=== PATIENT | female | born 1965 | race Caucasian/White ===

== ENCOUNTER 2018-03-09 17:25 | Emergency (ER) | payer OTHER ==
[~2018-03-09] VITALS: Ht 157.5 cm; Wt 66.2 kg
[~2018-03-09 17:25] MED LIST: AMBIEN 5 MG TABL5 M1 PO; DYAZIDE 37.5-21 EACH PO; FLAGYL500 M1 PO; FLAGYL500 MG PO; FOLIC ACID1 MG PO; HYDROCODONE-AP1 EAC6 PO; IBUPROFEN 200200 M1 PO; LEVAQUIN 500 M500 M2 PO; LEVOTHYROXINE 0.1 MG PO; LISINOPRIL10 MG PO; NEURONTIN 300300 M1 PO; NEURONTIN300 MG PO; PROAIR RESPICL90 MCG IH; TRINATE TABLET1 TAB PO; VITAMIN B-1100 M1 PO; ZPAK PO
[2018-03-09] MEDS ORDERED: PROTONIX40 M1 PO (17:40)
[2018-03-09] MEDS ORDERED: TRAMADOL 50 MG50 MG PO (18:20)
[2018-03-09 18:54] VITALS: BP 164/90
== END 2018-03-09 18:54 | disposition home or self-care (01) ==
LOC: M.ERS 17:25
DX: M25.572 Pain in left ankle and joints of left foot (principal); I10 Essential (primary) hypertension; K21.9 Gastro-esophageal reflux disease without esophagitis; G89.29 Other chronic pain

== ENCOUNTER 2018-04-09 05:02 | Emergency (ER) | payer OTHER ==
[~2018-04-09] VITALS: Ht 157.5 cm; Wt 66.2 kg
[~2018-04-09 05:02] MED LIST changes: +PROTONIX40 M1 PO; +TRAMADOL 50 MG50 MG PO
[2018-04-09 05:53] LABS: CREATININE 0.7 mg/dL (0.6-1.3); POTASSIUM 3.8 mmol/L (3.5-5.1)
[2018-04-09 05:57] LABS: URIC ACID* 7.9 mg/dL (2.6-7.2)
[2018-04-09] MEDS ORDERED: HYDROCODONE-AP1 EAC6 PO (06:48)
[2018-04-09] MEDS ORDERED: INDOMETHACIN 2525 MG PO (06:48)
[2018-04-09 07:19] VITALS: BP 155/96
== END 2018-04-09 07:20 | disposition home or self-care (01) ==
LOC: M.ERS 05:02
PROVIDERS: Emergency Medicine
DX: M25.474 Effusion, right foot (principal); I10 Essential (primary) hypertension; G89.29 Other chronic pain; K21.9 Gastro-esophageal reflux disease without esophagitis

== ENCOUNTER 2018-04-27 18:32 | Emergency (ER) | payer OTHER ==
[~2018-04-27] VITALS: Ht 157.5 cm; Wt 68.0 kg
[~2018-04-27 18:32] MED LIST changes: +INDOMETHACIN 2525 MG PO
[2018-04-27 19:30] LABS: ABSOLUTE BASOPHILS 0.1 thou/uL (0.0-0.2); ABSOLUTE EOSINOPHILS 0.5 thou/uL (0.0-0.7); ABSOLUTE LYMPHOCYTES 2.1 thou/uL (0.8-5.3); ABSOLUTE MONOCYTES 0.9 thou/uL (0.0-1.2); ABSOLUTE NEUTROPHILS 4.7 thou/uL (1.6-8.1); BASOPHILS 0.9 %; EOSINOPHILS 6.5 %; HEMATOCRIT 37.1 % (37.0-47.0); LYMPHOCYTES 24.9 %; MCH 33.7 pg (26.0-34.0); MCHC 32.4 g/dL (28.0-37.0); MCV 104.1 fL (80.0-100.0); MONOCYTES 10.5 %; MPV 7.8 fl. (7.2-11.1); NUCLEATED RBCS 0 /100WBC; PLATELET COUNT* 339 thou/uL (150-400); POLYS 57.2 %; RBC 3.56 mil/uL (4.20-5.00); RDW-CV 14.3 % (10.5-14.5); WBC 8.3 thou/uL (4.0-11.0)
[2018-04-27 19:38] LABS: CALCIUM 8.4 mg/dL (8.5-10.1); CREATININE 0.9 mg/dL (0.6-1.3); POTASSIUM 3.8 mmol/L (3.5-5.1)
[2018-04-27 19:42] LABS: ALBUMIN 3.2 g/dL (3.4-5.0); TOTAL BILIRUBIN 0.3 mg/dL (<0.1-1.0); TOTAL PROTEIN 6.7 g/dL (6.4-8.2); URIC ACID* 7.3 mg/dL (2.6-7.2)
[2018-04-27] MEDS ORDERED: ALLOPURINOL 10100 M1 PO (20:02)
[2018-04-27 20:36] VITALS: BP 140/79
== END 2018-04-27 20:45 | disposition home or self-care (01) ==
LOC: M.ERS 18:32
PROVIDERS: Physician Assistant
DX: M10.071 Idiopathic gout, right ankle and foot (principal); I10 Essential (primary) hypertension; G89.29 Other chronic pain; K21.9 Gastro-esophageal reflux disease without esophagitis; Z98.890 Other specified postprocedural states

== ENCOUNTER 2018-05-14 01:30 | Emergency (ER) | payer OTHER ==
[~2018-05-14] VITALS: Ht 157.5 cm; Wt 65.8 kg
[~2018-05-14 01:30] MED LIST changes: +ALLOPURINOL 10100 M1 PO
[2018-05-14 02:07] LABS: ABSOLUTE BASOPHILS 0.1 thou/uL (0.0-0.2); ABSOLUTE EOSINOPHILS 0.5 thou/uL (0.0-0.7); ABSOLUTE LYMPHOCYTES 2.3 thou/uL (0.8-5.3); ABSOLUTE MONOCYTES 0.7 thou/uL (0.0-1.2); ABSOLUTE NEUTROPHILS 4.2 thou/uL (1.6-8.1); BASOPHILS 0.7 %; EOSINOPHILS 6.6 %; HEMATOCRIT 37.9 % (37.0-47.0); HEMOGLOBIN 12.5 gm/dL (12.0-15.0); LYMPHOCYTES 29.9 %; MCH 33.2 pg (26.0-34.0); MCHC 32.9 g/dL (28.0-37.0); MCV 101.1 fL (80.0-100.0); MONOCYTES 8.6 %; MPV 8.1 fl. (7.2-11.1); NUCLEATED RBCS 0 /100WBC; PLATELET COUNT* 380 thou/uL (150-400); POLYS 54.2 %; RBC 3.75 mil/uL (4.20-5.00); RDW-CV 13.6 % (10.5-14.5); WBC 7.8 thou/uL (4.0-11.0)
[2018-05-14 02:12] LABS: URINE BILIRUBIN NEGATIVE (Negative); URINE BLOOD NEGATIVE (Negative); URINE CLARITY CLEAR; URINE COLOR YELLOW; URINE GLUCOSE-RANDOM NEGATIVE (Negative); URINE KETONES NEGATIVE (Negative); URINE LEUKOCYTES-REFLEX TRACE (Negative); URINE PROTEIN NEGATIVE (Negative); URINE UROBILINOGEN 0.2 E.U./dl (0.2-1.0)
[2018-05-14 02:13] LABS: URINE NITRITE-REFLEX POSITIVE (Negative)
[2018-05-14 02:23] LABS: CALCIUM 9.3 mg/dL (8.5-10.1); CREATININE 0.8 mg/dL (0.6-1.3); POTASSIUM 3.5 mmol/L (3.5-5.1)
[2018-05-14 02:27] LABS: ALBUMIN 3.9 g/dL (3.4-5.0); TOTAL BILIRUBIN 0.4 mg/dL (<0.1-1.0); TOTAL PROTEIN 7.4 g/dL (6.4-8.2)
[2018-05-14 03:23] LABS: CASTS None Seen /LPF (None Seen); SQUAMOUS >10 Many /LPF (0-3); URINE WBC-REFLEX 6-15 Few /HPF (0-5)
[2018-05-14 03:24] LABS: BACTERIA-REFLEX >30 Many /HPF (None Seen); CRYSTALS None Seen /LPF (None Seen); URINE RBC 0-2 Rare /HPF (0-2)
[2018-05-14] MEDS ORDERED: HYDROCODON-ACE1 EAC7 PO (04:24)
[2018-05-14] MEDS ORDERED: BACTRIM DS TAB1 EACH PO (04:24)
[2018-05-14 04:40] VITALS: BP 152/101
== END 2018-05-14 04:41 | disposition home or self-care (01) ==
LOC: M.ERS 01:30
PROVIDERS: Emergency Medicine
DX: S32.592A Other specified fracture of left pubis, initial encounter for closed fracture (principal); N39.0 Urinary tract infection, site not specified; I10 Essential (primary) hypertension; G89.29 Other chronic pain; K21.9 Gastro-esophageal reflux disease without esophagitis; X58.XXXA Exposure to other specified factors, initial encounter; Y93.89 Activity, other specified; Y92.89 Other specified places as the place of occurrence of the external cause; Y99.8 Other external cause status

== ENCOUNTER 2018-07-13 15:13 | Emergency (ER) | payer OTHER ==
[~2018-07-13] VITALS: Ht 157.5 cm; Wt 74.1 kg
[~2018-07-13 15:13] MED LIST changes: +BACTRIM DS TAB1 EACH PO; +HYDROCODON-ACE1 EAC7 PO
[2018-07-13 15:34] VITALS: BP 145/64
== END 2018-07-13 17:45 | disposition home or self-care (01) ==
LOC: M.ERS 15:13
DX: F10.129 Alcohol abuse with intoxication, unspecified (principal); Y90.9 Presence of alcohol in blood, level not specified; R11.2 Nausea with vomiting, unspecified; I10 Essential (primary) hypertension; G89.29 Other chronic pain; K21.9 Gastro-esophageal reflux disease without esophagitis

== ENCOUNTER 2018-07-13 16:23 | Emergency (ER) | payer OTHER ==
[~2018-07-13] VITALS: Ht 157.5 cm; Wt 66.7 kg
[2018-07-13 16:41] LABS: ABSOLUTE EOSINOPHILS 0.5 thou/uL (0.0-0.7); ABSOLUTE LYMPHOCYTES 2.4 thou/uL (0.8-5.3); ABSOLUTE MONOCYTES 0.7 thou/uL (0.0-1.2); ABSOLUTE NEUTROPHILS 3.6 thou/uL (1.6-8.1); BASOPHILS 0.6 %; EOSINOPHILS 6.7 %; HEMATOCRIT 38.1 % (37.0-47.0); HEMOGLOBIN 12.6 gm/dL (12.0-15.0); LYMPHOCYTES 33.4 %; MCH 32.3 pg (26.0-34.0); MCV 97.7 fL (80.0-100.0); MONOCYTES 9.6 %; MPV 7.9 fl. (7.2-11.1); NUCLEATED RBCS 0 /100WBC; PLATELET COUNT* 331 thou/uL (150-400); POLYS 49.7 %; RDW-CV 13.4 % (10.5-14.5); WBC 7.2 thou/uL (4.0-11.0)
[2018-07-13 16:49] LABS: ANION GAP 9 mmol/L (7-16); BUN 17 mg/dL (7-18); CALCIUM 9.2 mg/dL (8.5-10.1); CHLORIDE 111 mmol/L (98-107); CO2 22 mmol/L (21-32); CREATININE 1.1 mg/dL (0.6-1.3); GLUCOSE 99 mg/dL (70-99); POTASSIUM 3.9 mmol/L (3.5-5.1); PROTIME 10.6 Seconds (9.20-11.50); SODIUM 142 mmol/L (136-145)
[2018-07-13 16:56] LABS: ALBUMIN 3.9 g/dL (3.4-5.0); ALKALINE PHOSPHATASE 164 U/L (46-116); SGOT 23 U/L (15-37); SGPT 30 U/L (30-65); TOTAL BILIRUBIN 0.2 mg/dL (<0.1-1.0); TOTAL PROTEIN 7.9 g/dL (6.4-8.2); TROPONIN-I LEVEL <0.06 ng/mL (<0.06)
[2018-07-13 17:44] VITALS: BP 133/53
--- NOTE | 2018-07-14 11:37 | EKG ---
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 : 1965 Requested By: Gunner Greer Order Number: [id number] MD: Eric Carpio Measurements Intervals [place] Rate: 68 P: -4 NC: 185 QRS: -30 QRSD: 95 T: 45 QT: 443 QTc: 472 Interpretive Statements Sinus rhythm Left ventricular hypertrophy Anterior Q waves, possibly due to LVH Compared to ECG 05/01/2017 13:09:18 Left ventricular hypertrophy now present Q waves now present Electronically Signed On 07-14-2018 11:37:05 CDT by Eric Carpio [email or web address] <ELECTRONICALLY SIGNED> By: Eric Carpio MD, FACC 07/14/18 1137 1640 1640 Eric Carpio MD, [facility] /EPI
== END 2018-07-13 17:45 | disposition home or self-care (01) ==
LOC: M.ERS 16:23
PROVIDERS: Family Medicine
DX: R20.2 Paresthesia of skin (principal); F10.129 Alcohol abuse with intoxication, unspecified; Y90.6 Blood alcohol level of 120-199 mg/100 ml; R11.2 Nausea with vomiting, unspecified; I10 Essential (primary) hypertension; K21.9 Gastro-esophageal reflux disease without esophagitis; G89.29 Other chronic pain

== ENCOUNTER 2019-11-18 21:31 | Emergency (ER) | payer OTHER ==
[~2019-11-18] VITALS: Ht 157.5 cm; Wt 68.0 kg
[2019-11-19] MEDS ORDERED: NORCO 5-325 TA1 EAC1 PO (00:17)
[2019-11-19 00:41] VITALS: BP 130/67
== END 2019-11-19 00:42 | disposition home or self-care (01) ==
LOC: M.ERS 21:31
DX: S70.12XA Contusion of left thigh, initial encounter (principal); I10 Essential (primary) hypertension; G89.29 Other chronic pain; K21.9 Gastro-esophageal reflux disease without esophagitis; Z98.890 Other specified postprocedural states; W01.0XXA Fall on same level from slipping, tripping and stumbling without subsequent striking against object, initial encounter; Y93.89 Activity, other specified; Y92.89 Other specified places as the place of occurrence of the external cause; Y99.8 Other external cause status

== ENCOUNTER 2020-02-20 21:23 | Emergency (ER) | payer OTHER ==
[~2020-02-20] VITALS: Ht 157.5 cm; Wt 68.0 kg
[~2020-02-20 21:23] MED LIST changes: +NORCO 5-325 TA1 EAC1 PO
[2020-02-20] MEDS ORDERED: HYDROCODON-ACE1 EAC8 PO (23:00)
[2020-02-20] MEDS ORDERED: FLEXERIL PO (23:00)
[2020-02-20 23:18] VITALS: BP 111/79
== END 2020-02-20 23:19 | disposition home or self-care (01) ==
LOC: M.ERS 21:23
DX: M25.552 Pain in left hip (principal); I10 Essential (primary) hypertension; K21.9 Gastro-esophageal reflux disease without esophagitis; G89.29 Other chronic pain; Z98.890 Other specified postprocedural states

== ENCOUNTER 2021-08-15 12:59 | Inpatient (IN) | payer MEDICAID ==
[~2021-08-15] VITALS: Ht 157.5 cm; Wt 68.0 kg
[~2021-08-15 12:59] MED LIST changes: +FLEXERIL PO; +HYDROCODON-ACE1 EAC8 PO
[2021-08-15 13:14] VITALS: BP 163/82
[2021-08-15] MEDS ORDERED: ATENOLOL 25 MG25 M1 PO (13:56)
[2021-08-15] MEDS ORDERED: PROAIR RESPICL90 MCG INH (13:56)
[2021-08-15] MEDS ORDERED: D3-501250 MCG PO (13:56)
[2021-08-15] MEDS ORDERED: ALLOPURINOL 10100 M3 PO (13:56)
[2021-08-15 13:57] LABS: ABSOLUTE EOSINOPHILS 0.2 thou/uL (0.0-0.7); ABSOLUTE LYMPHOCYTES 1.2 thou/uL (0.8-5.3); ABSOLUTE MONOCYTES 0.5 thou/uL (0.0-1.2); ABSOLUTE NEUTROPHILS 2.6 thou/uL (1.6-8.1); BASOPHILS 0.4 %; EOSINOPHILS 3.9 %; HEMATOCRIT 33.6 % (37.0-47.0); HEMOGLOBIN 11.2 gm/dL (12.0-15.0); LYMPHOCYTES 26.5 %; MCH 32.3 pg (26.0-34.0); MCHC 33.3 g/dL (28.0-37.0); MCV 96.9 fL (80.0-100.0); MONOCYTES 10.2 %; MPV 8.1 fl. (7.2-11.1); NUCLEATED RBCS 0 /100WBC; PLATELET COUNT* 190 thou/uL (150-400); RBC 3.47 mil/uL (4.20-5.00); RDW-CV 13.6 % (10.5-14.5); WBC 4.5 thou/uL (4.0-11.0)
[2021-08-15] MEDS ORDERED: IRON325 PO (13:57)
[2021-08-15] MEDS ORDERED: NEURONTIN 300M300 M2 PO (13:57)
[2021-08-15] MEDS ORDERED: IBUPROFEN 800800 M1 PO (13:57)
[2021-08-15] MEDS ORDERED: LISINOPRIL20 MG PO (13:58)
[2021-08-15] MEDS ORDERED: LIDODERM1 EACH TOP (13:58)
[2021-08-15] MEDS ORDERED: CRESTOR40 MG PO (13:58)
[2021-08-15] MEDS ORDERED: PROTONIX40 M2 PO (13:58)
[2021-08-15 14:06] LABS: CALCIUM 8.9 mg/dL (8.5-10.1); POTASSIUM 3.8 mmol/L (3.5-5.1)
[2021-08-15 14:10] LABS: ALBUMIN 3.6 g/dL (3.4-5.0); TOTAL BILIRUBIN 0.6 mg/dL (<0.1-1.0); TOTAL PROTEIN 7.3 g/dL (6.4-8.2)
--- NOTE | 2021-08-15 15:59 | EKG ---
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 : 1965 Requested By: Zara Caballero Order Number: [id number] MD: Marcin Oakes Measurements Intervals [place] Rate: 79 P: 9 AL: 181 QRS: -42 QRSD: 108 T: 24 QT: 403 QTc: 463 Interpretive Statements Sinus rhythm left axis Abnormal R-wave progression, late transition Left ventricular hypertrophy Compared to ECG 07/13/2018 16:40:23 Q waves no longer present Electronically Signed On 08-15-2021 15:59:34 PHYSICAL SCIENCE PROFESSOR by Marcin Oakes [email or web address] <ELECTRONICALLY SIGNED> By: Marcin Oakes MD, [facility] 08/15/21 1559 1315 1315 Marcin Oakes MD, [facility] /EPI
[2021-08-15 16:01] LABS: APTT 27.1 Seconds (25.0-31.3); INR 1.1; PROTIME 10.8 Seconds (9.20-11.50)
[2021-08-15 17:21] LABS: URINE BILIRUBIN NEGATIVE (Negative); URINE BLOOD 2+ (Negative); URINE CLARITY CLEAR; URINE COLOR YELLOW; URINE GLUCOSE-RANDOM NEGATIVE (Negative); URINE KETONES NEGATIVE (Negative); URINE LEUKOCYTES-REFLEX TRACE (Negative); URINE NITRITE-REFLEX NEGATIVE (Negative); URINE PROTEIN NEGATIVE (Negative); URINE UROBILINOGEN 0.2 E.U./dl (0.2-1.0)
[2021-08-15 17:28] LABS: BACTERIA-REFLEX >30 Many /HPF (None Seen); CASTS None Seen /LPF (None Seen); CRYSTALS None Seen /LPF (None Seen); MUCUS None Seen strn/LPF (None Seen); SQUAMOUS >10 Many /LPF (0-3); URINE RBC 0-2 Rare /HPF (0-2); URINE WBC-REFLEX 0-5 Rare /HPF (0-5)
[2021-08-15 17:29] LABS: AMP/METHAMP Negative (Negative); BARBITURATES Negative (Negative); BENZODIAZEPINES Negative (Negative); COCAINE Negative (Negative); METHADONE Negative (Negative); OPIATES Negative (Negative); PCP Negative (Negative); THC Negative (Negative)
[2021-08-15 20:00] VITALS: BP 132/78
[2021-08-16] VITALS (7 sets, daily range): BP systolic 119–147; BP diastolic 59–83
[2021-08-16 03:58] LABS: HEMATOCRIT 29.2 % (37.0-47.0); HEMOGLOBIN 9.8 gm/dL (12.0-15.0); MCH 32.4 pg (26.0-34.0); MCHC 33.4 g/dL (28.0-37.0); MCV 97.1 fL (80.0-100.0); MPV 8.2 fl. (7.2-11.1); RBC 3.01 mil/uL (4.20-5.00); RDW-CV 13.8 % (10.5-14.5); WBC 3.8 thou/uL (4.0-11.0)
[2021-08-16 04:23] LABS: CALCIUM 8.3 mg/dL (8.5-10.1); MAGNESIUM 1.9 mg/dL (1.8-2.4); TOTAL BILIRUBIN 0.4 mg/dL (<0.1-1.0); TOTAL PROTEIN 6.3 g/dL (6.4-8.2)
[2021-08-17 04:49] LABS: HEMATOCRIT 30.9 % (37.0-47.0); HEMOGLOBIN 10.3 gm/dL (12.0-15.0); MCH 32.7 pg (26.0-34.0); MCHC 33.4 g/dL (28.0-37.0); MCV 97.8 fL (80.0-100.0); RBC 3.16 mil/uL (4.20-5.00); RDW-CV 14.1 % (10.5-14.5); WBC 7.1 thou/uL (4.0-11.0)
[2021-08-17 05:19] LABS: CALCIUM 8.7 mg/dL (8.5-10.1); MAGNESIUM 1.8 mg/dL (1.8-2.4); POTASSIUM 3.6 mmol/L (3.5-5.1)
[2021-08-17 08:00] VITALS: BP 154/79
[2021-08-17 12:00] VITALS: BP 137/75
[2021-08-17 20:00] VITALS: BP 150/79
[2021-08-18 08:00] VITALS: BP 144/69
[2021-08-18 10:04] LABS: ABSOLUTE EOSINOPHILS 0.2 thou/uL (0.0-0.7); ABSOLUTE MONOCYTES 0.5 thou/uL (0.0-1.2); ABSOLUTE NEUTROPHILS 3.4 thou/uL (1.6-8.1); BASOPHILS 0.3 %; EOSINOPHILS 4.5 %; HEMATOCRIT 31.8 % (37.0-47.0); HEMOGLOBIN 10.4 gm/dL (12.0-15.0); MCH 32.2 pg (26.0-34.0); MCHC 32.7 g/dL (28.0-37.0); MCV 98.4 fL (80.0-100.0); MONOCYTES 9.8 %; NUCLEATED RBCS 0 /100WBC; PLATELET COUNT* 186 thou/uL (150-400); POLYS 65.4 %; RBC 3.23 mil/uL (4.20-5.00); RDW-CV 13.9 % (10.5-14.5); WBC 5.1 thou/uL (4.0-11.0)
[2021-08-18 10:12] LABS: ALBUMIN 3.3 g/dL (3.4-5.0); CALCIUM 8.8 mg/dL (8.5-10.1); CREATININE 1.1 mg/dL (0.6-1.3); POTASSIUM 3.6 mmol/L (3.5-5.1); TOTAL BILIRUBIN 0.5 mg/dL (<0.1-1.0); TOTAL PROTEIN 6.9 g/dL (6.4-8.2)
[2021-08-18] MEDS ORDERED: AUGMENTIN 500-1 EACH PO ×2 (11:34→13:10)
[2021-08-18] MEDS ORDERED: MIRALAX17 GM PO (12:33)
[2021-08-18 12:39] VITALS: BP 144/69
--- NOTE | 2021-08-18 18:53 | CON ---
[address] [address] CONSULTATION Name: BETSYSTEFANIE K Room: [address] [place]#: [id number] Admission: 08/15/21 Attend Phys: Gela Ortiz MD Discharge: 08/18/21 Date of : 61 Report #: [id number] THIS REPORT FOR: cc: VAZQUEZ HARPER,Aspen Lou MD ~ cc: Vazquez Harper D.O. DATE OF CONSULTATION: 08/16/2021 Please note at the time of this dictation, the patient was seen and physically examined by myself. REASON FOR CONSULTATION: Bright red rectal bleeding. HISTORY OF PRESENT ILLNESS: This is a 56-year-old female who presented to the Emergency Room with chief complaint of on Sunday she had been constipated. Normally, she does have issues with this in the past where it is usually around 3 days, sometimes longer. She will have to take some MiraLax to help her bowels move, but she started having lower abdominal discomfort. She took some MiraLax and then she began noticing bright red rectal bleeding that started on Sunday filling the toilet and continued on Sunday, prompting her to come in to be seen. The patient denies any blood thinners or taking any aspirin or any other NSAIDs at this time. She states she did have a colonoscopy back in 2019 at [facility]. She does not recall anything wrong, but we will obtain those records for us to evaluate her last colon and any path. She denies any upper GI symptoms. She states she is able to eat and drink without any issues. She has no issues with nausea, weight has been stable. PAST MEDICAL HISTORY: Hypertension, hyperlipidemia. She has had a history of reflux. She has a history of iron deficiency anemia. 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 PAST SURGICAL HISTORY: She had a , right knee reconstruction, left fibula fracture, right foot fractures x 2 and a total left knee replacement. FAMILY HISTORY: Mother and sisters, history of colon cancer. SOCIAL HISTORY: The patient is a past user of alcohol. She quit in 2019. She used to drink a bottle of wine daily for many years. She denies any illegal drug use or any tobacco use. ALLERGIES: No known drug allergies. MEDICATIONS FROM HOME: Include ProAir, allopurinol, Tenormin, vitamin D, [place] [address] CONSULTATION Name: STEFANIE MEYER Room: [address]#: [id number] Admission: 08/15/21 Attend Phys: Gela Ortiz MD Discharge: 08/18/21 Date of : 61 Report #: [id number], Neurontin, Lidoderm, lisinopril, Protonix and Crestor. REVIEW OF SYSTEMS: Twelve-point review of systems is essentially negative except what is mentioned in the HPI. PHYSICAL EXAMINATION: VITAL SIGNS: 36.4, pulse 75, respirations 14, blood pressure 147/83. HEART: Regular rate and rhythm. LUNGS: Clear. ABDOMEN: Soft, positive bowel sounds in all 4 quadrants with some very mild tenderness noted in the left lower quad. LABORATORY DATA: Hemoglobin on admission was 11.2, she is down to 9.8, white count is 3.8, platelets 169. GFR is 57. PT is 10.8, INR is 1.1, total protein 6.3, albumin is 3. Tox screen is negative. Total bili 0.4, alk phos is 149, ALT is 72 and AST is 49. CTA showed liver nodularity, but otherwise negative for any active bleeding. IMPRESSION: 1. Gastrointestinal bleed. 2. Bright red rectal bleeding. 3. Left lower quadrant pain, improved. 4. Constipation. 5. Cirrhosis secondary to alcohol, quit in 2019. 6. Transaminitis. 7. Anemia. 8. Family history of colon cancer, mother and sisters. PLAN: 1. Obtain records from [facility] regarding her last colonoscopy in 2019. 2. Plan for colonoscopy tomorrow with Dr. Ann with prep starting today. 3. Further recommendations to be made after Dr. Ann sees the patient and after the procedure has been performed. Thank you for allowing us to participate in this patient's care. Please do not hesitate to call with any questions regarding this consult. <ELECTRONICALLY SIGNED> By: Aspen Ann MD 08/18/21 1853 0717 [id number] Ann MD /nt
== END 2021-08-18 13:05 | disposition home or self-care (01) | DRG 378 ==
LOC: M.ERS 12:59 → M.TBA-ER 14:57 → M.2W 08-16 22:21
PROVIDERS: Nurse Practitioner Family; ADMIT Internal Medicine; ATTEND Internal Medicine
PROC: 0DBE8ZX Excision of Large Intestine, Via Natural or Artificial Opening Endoscopic, Diagnostic (ICD-10-PCS; principal; 2021-08-17)
DX: K62.5 Hemorrhage of anus and rectum (principal); N39.0 Urinary tract infection, site not specified; I10 Essential (primary) hypertension; E78.5 Hyperlipidemia, unspecified; G89.29 Other chronic pain; F41.9 Anxiety disorder, unspecified; F32.A Depression, unspecified; E78.00 Pure hypercholesterolemia, unspecified; G62.9 Polyneuropathy, unspecified; M54.9 Dorsalgia, unspecified; K64.8 Other hemorrhoids; K60.2 Anal fissure, unspecified; R74.01 Elevation of levels of liver transaminase levels; Z96.652 Presence of left artificial knee joint; D50.9 Iron deficiency anemia, unspecified; K59.00 Constipation, unspecified; M10.9 Gout, unspecified; K21.9 Gastro-esophageal reflux disease without esophagitis; B96.1 Klebsiella pneumoniae [K. pneumoniae] as the cause of diseases classified elsewhere; K70.30 Alcoholic cirrhosis of liver without ascites; Z20.822 Contact with and (suspected) exposure to COVID-19; Z23 Encounter for immunization; Z98.891 History of uterine scar from previous surgery; Z79.899 Other long term (current) drug therapy; Z80.0 Family history of malignant neoplasm of digestive organs

== ENCOUNTER 2021-10-03 05:20 | Emergency (ER) | payer MEDICAID ==
[~2021-10-03] VITALS: Ht 157.5 cm; Wt 69.4 kg
[~2021-10-03 05:20] MED LIST changes: +ALLOPURINOL 10100 M3 PO; +ATENOLOL 25 MG25 M1 PO; +AUGMENTIN 500-1 EACH PO; +CRESTOR40 MG PO; +D3-501250 MCG PO; +IBUPROFEN 800800 M1 PO; +IRON325 PO; +LIDODERM1 EACH TOP; +LISINOPRIL20 MG PO; +MIRALAX17 GM PO; +NEURONTIN 300M300 M2 PO; +PROAIR RESPICL90 MCG INH; +PROTONIX40 M2 PO
[2021-10-03 06:38] LABS: HEMOGLOBIN 12.9 gm/dL (12.0-15.0); MCH 32.5 pg (26.0-34.0); MCHC 33.2 g/dL (28.0-37.0); MPV 8.6 fl. (7.2-11.1); RBC 3.98 mil/uL (4.20-5.00); RDW-CV 13.3 % (10.5-14.5); WBC 10.8 thou/uL (4.0-11.0)
[2021-10-03 06:46] LABS: CALCIUM 8.5 mg/dL (8.5-10.1); CREATININE 1.4 mg/dL (0.6-1.3); POTASSIUM 4.1 mmol/L (3.5-5.1)
[2021-10-03 06:51] LABS: ALBUMIN 3.8 g/dL (3.4-5.0); TOTAL BILIRUBIN 0.2 mg/dL (<0.1-1.0); TOTAL PROTEIN 7.8 g/dL (6.4-8.2)
[2021-10-03 08:38] VITALS: BP 94/54
== END 2021-10-03 08:38 | disposition home or self-care (01) ==
LOC: M.ERS 05:20
PROVIDERS: Personal Emergency Response Attendant
DX: S00.03XA Contusion of scalp, initial encounter (principal); F10.920 Alcohol use, unspecified with intoxication, uncomplicated; I10 Essential (primary) hypertension; E78.5 Hyperlipidemia, unspecified; K21.9 Gastro-esophageal reflux disease without esophagitis; Z98.890 Other specified postprocedural states; Z96.652 Presence of left artificial knee joint; Z96.642 Presence of left artificial hip joint; Z79.899 Other long term (current) drug therapy; Y90.8 Blood alcohol level of 240 mg/100 ml or more; W19.XXXA Unspecified fall, initial encounter; Y93.89 Activity, other specified; Y92.89 Other specified places as the place of occurrence of the external cause; Y99.8 Other external cause status